=== PATIENT | female | born 1970 | race Caucasian/White ===

== ENCOUNTER 2024-10-18 06:45 | Day surgery (SDC) | payer MEDICAID, SELFPAY ==
[2024-10-17 14:12] VITALS: BMI 37.5
[2024-10-18] VITALS (9 sets, daily range): BP systolic 139–177; BP diastolic 90–104; PULSE 62–72; RESP 12–20; TEMP 36.4–36.5; O2SAT 96–100; BMI 37.5
[2024-10-18] MEDS: SODIUM CHLORIDE 0.9% 500 ML 500 ML 100 ML IV (07:36)
[2024-10-18] MEDS: MIDAZOLAM INJ 1 MG/ML VIAL 2 ML (ASD USE ONLY) 2 MG IVP (07:36)
[2024-10-18] MEDS: fentaNYL CIT INJ 50 mCg/ML AMP 2ML (ASD USE ONLY) IVP (07:37)
[2024-10-18] MEDS: DiphenhydrAMINE INJ 50 MG/ML VIAL 25 MG IVP (07:37)
--- NOTE | 2024-10-18 07:43 | SUR.PHASEII ---
Received report from BOT[employer]CHN[employer] OFFICERHarshad. Pt arrived to PACU, able to open eyes and responds to verbal instructions and drifted back to sleep. No acute distress noted.
== END 2024-10-18 08:28 | disposition home or self-care (01) ==
PROVIDERS: Referring Provider Surgery; Visit Provider Surgery
PROC: 0DBE8ZX Excision of Large Intestine, Via Natural or Artificial Opening Endoscopic, Diagnostic (ICD-10-PCS; CPT 45380; principal; 2024-10-18 07:30)
DX: Z12.11 Encounter for screening for malignant neoplasm of colon (principal); K64.1 Second degree hemorrhoids; K64.4 Residual hemorrhoidal skin tags; K57.30 Diverticulosis of large intestine without perforation or abscess without bleeding
CPT/HCPCS: 45378; 81025; J1200; J2250; J3010; J7040